=== PATIENT | female | born 2000 | race African-American/Black ===

== ENCOUNTER 2019-04-02 15:04 | Outpatient (CLI) | payer MEDICAID ==
--- NOTE | 2019-04-02 15:59 | ULT ---
RIGHT BREAST ULTRASOUND: 04/02/19 INDICATION: History of right breast mass. FINDINGS: There is a 2.8 x 1.4 x 2.7 cm lobulated hypoechoic solid mass within the right breast 10 o'clock posi tion, 3 cm from the nipple that does correlate to the palpable abnormality. IMPRESSION: BIRADS 3: Probably Benign Finding Initial Short-Interval Follow-Up Suggested Initial short-term follow up (usually 6-month) examination There is a lobulated solid mass in the right breast 10 o'clock position, 3 cm from the nipple measuri ng 2.7 x 2.8 x 1.4 cm suspicious for fibroadenoma. Would recommend a follow-up right breast ultraso und in six months to document stability and size. Patient was counselled following this prior to [facility]. POS: OFF
== END 2019-04-02 15:05 | disposition home or self-care (01) ==
LOC: BICULT 15:04
PROVIDERS: ATTEND Family Medicine
DX: N63.10 Unspecified lump in the right breast, unspecified quadrant (principal)